=== PATIENT | female | born 1940 | race Caucasian/White ===

== ENCOUNTER → 2016-12-19 | Outpatient (CLI) | payer OTHER ==
[~2016-12-19] MED LIST: AMLO1CAP5 PO; ASPI-515 PO; FLUT12AE INH
[2016-12-19 13:44] LABS: BLOOD UREA NITROGEN 12 mg/dL (7-18)
[2016-12-19 13:47] LABS: ASPARTATE AMINO TRANSFERASE 30 U/L (15-37)
== END | disposition home or self-care (01) ==
LOC: STAR 12:27
PROVIDERS: ATTEND Surgery
DX: Z01.818 Encounter for other preprocedural examination (principal); R94.31 Abnormal electrocardiogram [ECG] [EKG]
CPT/HCPCS: 36415; 80053; 93005

== ENCOUNTER 2016-12-29 08:51 | Day surgery (SDC) | payer OTHER ==
[~2016-12-29] VITALS: Ht 162.6 cm; Wt 54.0 kg
[~2016-12-29 08:51] MED LIST changes: +BUPIVACAINE/PF-EPI 0.5% 1:200K ONE
[2016-12-29] MEDS ORDERED: LACTATED RINGERS 1,000 ML IV SCH (09:25)
[2016-12-29 09:28] VITALS: BP 153/91
[2016-12-29] MEDS ORDERED: LIDOCAINE 1%, 2ML ONE (09:36)
[2016-12-29] MEDS ORDERED: FENTANYL PF 250 MCG/5ML ONE (10:32)
[2016-12-29] MEDS ORDERED: MIDAZOLAM 1 MG/ML, 2ML ONE (10:32)
[2016-12-29] MEDS ORDERED: DEXAMETHASONE 4 MG/ML, 1ML ONE (11:36)
[2016-12-29] MEDS ORDERED: PROPOFOL 10 MG/ML, 20ML ONE (11:36)
[2016-12-29] MEDS ORDERED: CEFAZOLIN 1,000 MG ONE (11:36)
[2016-12-29] MEDS ORDERED: EPHEDRINE 50 MG/ML, 1ML ONE (11:36)
[2016-12-29] MEDS ORDERED: SUCCINYLCHOLINE 20 MG/ML, 10ML ONE (11:36)
[2016-12-29] MEDS ORDERED: ONDANSETRON 2MG/ML, 2ML IVPush PRN (12:00)
[2016-12-29] MEDS ORDERED: HYDROmorphone 1 MG/ML, 1ML IV PRN (12:00)
[2016-12-29] MEDS ORDERED: LABETALOL 5MG/ML, 20ML IV PRN (12:00)
[2016-12-29] MEDS ORDERED: hydrALAzine 20 MG/ML, 1ML IV PRN (12:00)
[2016-12-29] MEDS ORDERED: MEPERIDINE/PF 25MG/0.5ML IVPush PRN (12:00)
[2016-12-29] MEDS ORDERED: ALBUTEROL SULFATE 2.5 MG/3 ML NPPB PRN (12:00)
[2016-12-29] MEDS ORDERED: FENTANYL PF 100 MCG/2ML IV PRN (12:00)
[2016-12-29 13:00] LABS: IOPTH BASELINE 300 pg/mL; SAMPLE 5 %DROP IOPTH 93 %
[2016-12-29] MEDS ORDERED: OXYcodone 5 MG/5 ML ORAL.SOL UDC ONE (13:43)
[2016-12-29] MEDS ORDERED: OXYcodone 5 MG/5 ML ORAL.SOL UDC PO PRN (14:00)
== END 2016-12-29 15:50 | disposition home or self-care (01) ==
LOC: OUT 08:51
PROVIDERS: ATTEND Surgery
DX: E21.0 Primary hyperparathyroidism (principal); I10 Essential (primary) hypertension; H40.9 Unspecified glaucoma; M19.90 Unspecified osteoarthritis, unspecified site; G89.4 Chronic pain syndrome; Z90.710 Acquired absence of both cervix and uterus; Z98.890 Other specified postprocedural states; Z72.89 Other problems related to lifestyle
CPT/HCPCS: 36415; 60500; 83970; 88305; 88331; 95865; 95940; C1760; J0330; J0690; J1100; J2250; J2704; J3010; J7120

== ENCOUNTER 2020-01-26 13:42 | Outpatient (CLI) | payer MEDICARE ==
[~2020-01-26 13:42] MED LIST changes: -BUPIVACAINE/PF-EPI 0.5% 1:200K ONE
== END 2020-01-26 23:59 | disposition home or self-care (01) ==
LOC: CVU 13:42
PROVIDERS: ATTEND Internal Medicine Cardiovascular Disease
DX: I08.2 Rheumatic disorders of both aortic and tricuspid valves (principal); I65.23 Occlusion and stenosis of bilateral carotid arteries; R53.1 Weakness; I11.9 Hypertensive heart disease without heart failure
CPT/HCPCS: 93306; 93880